=== PATIENT | female | born 1990 | race Caucasian/White ===

== ENCOUNTER 2020-09-03 22:12 | Emergency (ER) | payer OTHER ==
--- NOTE | 2020-09-03 23:10 | ED Physician Documentation ---
PD HPI HEAD INJURY - Stated complaint Stated Complaint: FOREHEAD LAC - Chief complaint Chief Complaint: Laceration - History obtained from History obtained from: Patient - History of Present Illness Mechanism of head injury: Blow Where head injury occurred: Home Timing - onset: How many hours ago (2) Pain level now: 1 Location of injury: Left Quality of pain: Aching Contributing factors: No: Anticoagulated, Intoxicated Recently seen: Not recently seen - Additional information Additional information: Presents after sustaining a laceration to her left eyebrow two hours ago when she opened a car door, the edge of which struck the left eyebrow. She denies loss of consciousness. She denies any significant headache. Review of Systems Eyes: reports: Reviewed and negative Ears: reports: Reviewed and negative Skin: reports: Laceration (s) Musculoskeletal: denies: Neck pain PD PAST MEDICAL HISTORY - Past Medical History Past Medical History: Yes Cardiovascular: None Respiratory: None Neuro: None Endocrine/Autoimmune: None GI: None LAY OUT TECHNICIAN: Endometriosis : None HEENT: None Psych: Depression Musculoskeletal: None Derm: None - Past Surgical History Past Surgical History: Yes General: Other /LAY OUT TECHNICIAN: Other HEENT: Tonsil/Adenoidectomy - Allergies Allergies/Adverse Reactions: Allergies Allergy/AdvReac Type Severity Reaction Status Date / Time latex AdvReac Unknown Verified 09/03/20 22:30 Penicillins AdvReac Rash Verified 09/03/20 22:29 quetiapine [From Seroquel] AdvReac Unknown Verified 09/03/20 22:29 trazodone AdvReac Unknown Verified 09/03/20 22:30 - Social History Does the pt smoke?: No Smoking Status: Never smoker Does the pt drink ETOH?: Yes Does the pt have substance abuse?: No - Immunizations Immunizations are current?: Yes - POLST Patient has POLST: No PD ED PE NORMAL - Vitals Vital signs reviewed: Yes - General General: Alert and oriented X 3, No acute distress, Well developed/nourished - HEENT HEENT: PERRL, EOMI PD ED PE EXPANDED - HEENT HEENT Visual: 1 - laceration (1 cm length) Results - Vitals Vitals: Vital Signs - 24 hr 09/03/20 09/04/20 22:27 00:10 Temperature 36.4 C L 36.5 C Heart Rate 110 H 91 Respiratory 16 16 Rate Blood Pressure 133/82 H 121/78 O2 Saturation 100 100 Oxygen O2 Source Room air Procedures - Laceration (location) Face Length in cm: 1 Wound type: Curved, Into subcut fat, Clean Neurovascular status: Sensory intact, Motor intact Anesthesia: Lidocaine 1%, With bicarb Wound preparation: Chlorhexadine, Irrigated copiously NS, Wound explored, To the base. No: FB identified Skin layer closure: Interrupted, Running, Size #-0 - enter number (5-0) Other: Patient tolerated well, No complications, Neurovascular intact, Dressing applied, Tetanus UTD PD MEDICAL DECISION MAKING - ED course Complexity details: considered differential, d/w patient Departure - Departure Disposition: 01 Home, Self Care Clinical Impression: Laceration Condition: Good Instructions: ED Laceration Facial Sutr Tape Comments: Follow up with your primary care provider in 6-7 days for removal of stitches Discharge Date/Time: 09/04/20 00:10
[2020-09-03] MEDS ORDERED: BUFFERED LIDOCAINE 10 ML SYRINGE SUBQ STA (23:18)
[2020-09-04] MEDS ORDERED: BACITRACIN ZINC OINT 1 PACKET TOP STA
[2020-09-04 00:11] VITALS: BP 121/78
== END 2020-09-04 00:10 | disposition home or self-care (01) ==
LOC: ED 22:12
DX: S01.112A Laceration without foreign body of left eyelid and periocular area, initial encounter (principal); W22.8XXA Striking against or struck by other objects, initial encounter; Y92.009 Unspecified place in unspecified non-institutional (private) residence as the place of occurrence of the external cause
CPT/HCPCS: 12011; 99281; 99282; A9270